=== PATIENT | female | born 1960 | race African-American/Black ===

== ENCOUNTER 2022-05-13 14:52 | Outpatient (CLI) | payer BC ==
[~2022-05-13 14:52] MED LIST: Magnevist 469MG/ML 20 ML VIAL ONE
== END 2022-05-13 14:53 | disposition home or self-care (01) ==
LOC: CSHMRI 14:52
PROVIDERS: ATTEND Surgery
DX: M54.2 Cervicalgia (principal); R20.2 Paresthesia of skin; Z98.890 Other specified postprocedural states; M47.812 Spondylosis without myelopathy or radiculopathy, cervical region
CPT/HCPCS: 72125; 72156; 82565